=== PATIENT | male | born 1965 | race Caucasian/White ===

== ENCOUNTER 2017-01-29 11:20 | Emergency (ER) | payer MEDICARE ==
[~2017-01-29] VITALS: Ht 160 cm; Wt 95.3 kg
[~2017-01-29 11:20] MED LIST: ACET1TAB33 PO; BACL10TA PO; BUPR300T4 PO; FENT1PAT13 TD; GABA800T2 PO; HYDR-2762 PO; LISI10TA2 PO; MELO15TA23 PO; OLAN5TAB7 PO; OXCA300T PO; PROP40TA PO; RANI150C PO; SIMV20TA3 PO; SULF1TAB24 PO; TIOT18CA IH; TRAM50TA PO; UMEC1DIS IH; VENTOLIN HFA18 GM INH; ZOLP10TA4 PO
[2017-01-29 11:57] VITALS: BP 118/71
[2017-01-29] MEDS ORDERED: NAPROXEN 500 MG TABLET PO STA (12:14)
--- NOTE | 2017-01-29 12:33 | RAD ---
Right foot, 3 views, 01/29/2017: History: Foot pain, injury There is considerable hypertrophic degenerative change at the first MTP joint. There is mild scattered degenerative changes at several interphalangeal joints. No acute fracture or dislocation is identified. There is a small inferior calcaneal spur. IMPRESSION: 1. Scattered degenerative changes. 2. No acute bony abnormality is detected.
[2017-01-29 12:38] LABS: BASO # 0.1 x10^3/uL (0.0-0.2); BASO % 1 % (0-3); EOS % 4 % (0-3); HEMATOCRIT 33.6 % (39.0-53.0); HEMOGLOBIN 11.8 g/dL (13.0-17.5); LYMPH # 1.4 x10^3/uL (1.0-4.8); LYMPH % 23 % (24-48); MEAN CORPUSCULAR HEMOGLOBIN 33 pg (25-35); MEAN CORPUSCULAR HGB CONC 35 g/dL (31-37); MEAN CORPUSCULAR VOLUME 94 fL (79-100); MONO % 8 % (0-9); NEUT % 64 % (31-73); PLATELET COUNT 180 x10^3/uL (140-400); RED CELL DISTRIBUTION WIDTH 13.7 % (11.5-14.5); WHITE BLOOD COUNT 6.1 x10^3/uL (4.0-11.0)
[2017-01-29 12:45] LABS: BILIRUBIN,URINE NEGATIVE (NEG); GLUCOSE,URINE NEGATIVE (NEG); NITRITE,URINE NEGATIVE (NEG); PH,URINE 6.5; PROTEIN,URINE NEGATIVE (NEG-TRACE); UROBILINOGEN,URINE 0.2 mg/dL (0.2 mg/dL)
[2017-01-29 12:46] LABS: CALCIUM 9.2 mg/dL (8.5-10.1); CREATININE 0.9 mg/dL (0.7-1.3); GFR 88.3; POTASSIUM 4.4 mmol/L (3.5-5.1)
[2017-01-29 12:49] LABS: C-REACTIVE PROTEIN 2.5 mg/L (0-3.3); URIC ACID 2.9 mg/dL (3.5-7.2)
[2017-01-29 12:52] LABS: BACTERIA,URINE FEW /HPF (0-FEW); RBC,URINE 0 /HPF (0-2); SQUAMOUS EPITHELIAL CELL,UR FEW /LPF
[2017-01-29] MEDS ORDERED: DICL50TA4 PO (13:47)
[2017-01-29] MEDS ORDERED: DICL100G18 TP (13:47)
--- NOTE | 2017-01-29 13:48 | PHYS DOC ---
Past Medical History Past Medical History: Anxiety, CAD, COPD, Depression, Hypertension, Other Additional Past Medical Histor: "Back pt." Past Surgical History: Other Additional Past Surgical Histo: R)inruinal hernia, circumcision,"tailbone removed-s/pfell on ice." Alcohol Use: Occasionally Drug Use: None Adult General Chief Complaint Chief Complaint: FOOT INJURY PAIN HPI HPI Patient is a 51 year old male with history of hypertension, anxiety, CAD and depression who presents with right foot pain mostly on the great toe pain that began 2-1/2 months ago. Patient denies any known trauma though he states a couple days ago his son bumped into his right foot with his knee. Patient states the pain is worse on ambulation. Denies any history of gout. Review of Systems Review of Systems Constitutional: Denies fever or chills [] Eyes: Denies change in visual acuity, redness, or eye pain [] HENT: Denies nasal congestion or sore throat [] Respiratory: Denies cough or shortness of breath [] Cardiovascular: No additional information not addressed in HPI [] GI: Denies abdominal pain, nausea, vomiting, bloody stools or diarrhea [] : Denies dysuria or hematuria [] Musculoskeletal: Right great toe pain Integument: Denies rash or skin lesions [] Neurologic: Denies headache, focal weakness or sensory changes [] Endocrine: Denies polyuria or polydipsia [] Current Medications Current Medications Current Medications Medications (Trade) Dose Ordered Sig/Fredrick Start Time Stop Time Status Last Admin Dose Admin Naproxen (Naprosyn) 500 mg 1X STAT 01/29/17 12:14 01/29/17 12:16 DC 01/29/17 12:23 500 MG Allergies Allergies Allergies Coded Allergies Type Severity Reaction Last Updated Verified Penicillins Allergy Intermediate Swelling 03/25/16 Yes ciprofloxacin Allergy Intermediate "Hot" at injection site. "Bad reaction." Yes Physical Exam Physical Exam Constitutional: Well developed, well nourished, no acute distress, non-toxic appearance. [] HENT: Normocephalic, atraumatic, bilateral external ears normal, oropharynx moist, no oral exudates, nose normal. [] Eyes: PERRLA, EOMI, conjunctiva normal, no discharge. [] Neck: Normal range of motion, no tenderness, supple, no stridor. [] Cardiovascular:Heart rate regular rhythm, no murmur [] Lungs & Thorax: Bilateral breath sounds clear to auscultation [] Abdomen: Bowel sounds normal, soft, no tenderness, no masses, no pulsatile masses. [] Skin: Warm, dry, no erythema, no rash. [] Back: No tenderness, no CVA tenderness. [] Extremities: Right great toe MTP joint with small amount of soft tissue swelling no warmth or erythema. Tenderness along the right great toe MTP joint on exam. Full range of motion to the right foot and toes. No navicular bone pain or tenderness on exam to the right foot. No pain or tenderness of the base of the fifth metatarsal of the right foot. Neurologic: Alert and oriented X 3, normal motor function, normal sensory function, no focal deficits noted. [] Psychologic: Affect normal, judgement normal, mood normal. [] Current Patient Data Vital Signs Vital Signs Date Time Temp Pulse Resp B/P (MAP) Pulse Ox O2 Delivery O2 Flow Rate FiO2 01/29/17 11:57 97.7 96 18 96 Room Air 97.7 Lab Values Laboratory Tests Test 01/29/17 12:30 01/29/17 12:35 White Blood Count 6.1 x10^3/uL (4.0-11.0) Red Blood Count 3.60 x10^6/uL (4.30-5.70) L Hemoglobin 11.8 g/dL (13.0-17.5) L Hematocrit 33.6 % (39.0-53.0) L Mean Corpuscular Volume 94 fL (79-100) Mean Corpuscular Hemoglobin 33 pg (25-35) Mean Corpuscular Hemoglobin Concent 35 g/dL (31-37) Red Cell Distribution Width 13.7 % (11.5-14.5) Platelet Count 180 x10^3/uL (140-400) Neutrophils (%) (Auto) 64 % (31-73) Lymphocytes (%) (Auto) 23 % (24-48) L Monocytes (%) (Auto) 8 % (0-9) Eosinophils (%) (Auto) 4 % (0-3) H Basophils (%) (Auto) 1 % (0-3) Neutrophils # (Auto) 3.9 x10^3uL (1.8-7.7) Lymphocytes # (Auto) 1.4 x10^3/uL (1.0-4.8) Monocytes # (Auto) 0.5 x10^3/uL (0.0-1.1) Eosinophils # (Auto) 0.2 x10^3/uL (0.0-0.7) Basophils # (Auto) 0.1 x10^3/uL (0.0-0.2) Sodium Level 131 mmol/L (136-145) L Potassium Level 4.4 mmol/L (3.5-5.1) Chloride Level 97 mmol/L (98-107) L Carbon Dioxide Level 25 mmol/L (21-32) Anion Gap 9 (6-14) Blood Urea Nitrogen 16 mg/dL (8-26) Creatinine 0.9 mg/dL (0.7-1.3) Estimated GFR (Cockcroft-Gault) 88.3 Glucose Level 112 mg/dL (70-99) H Uric Acid 2.9 mg/dL (3.5-7.2) L Calcium Level 9.2 mg/dL (8.5-10.1) C-Reactive Protein, Quantitative 2.5 mg/L (0-3.3) Urine Collection Type Unknown Urine Color Yellow Urine Clarity Clear Urine pH 6.5 Urine Specific [place] 1.015 Urine Protein Negative mg/dL (NEG-TRACE) Urine Glucose (UA) Negative mg/dL (NEG) Urine Ketones (Stick) Negative mg/dL (NEG) Urine Blood Negative (NEG) Urine Nitrite Negative (NEG) Urine Bilirubin Negative (NEG) Urine Urobilinogen Dipstick 0.2 mg/dL (0.2 mg/dL) Urine Leukocyte Esterase Trace (NEG) Urine RBC 0 /HPF (0-2) Urine WBC 1-4 /HPF (0-4) Urine Squamous Epithelial Cells Few /LPF Urine Bacteria Few /HPF (0-FEW) Urine Mucus Slight /LPF Laboratory Tests 01/29/17 12:30 Laboratory Tests 01/29/17 12:30 EKG EKG [] Radiology/Procedures Radiology/Procedures []PROCEDURE: FOOT RIGHT 3V Right foot, 3 views, 01/29/2017: History: Foot pain, injury There is considerable hypertrophic degenerative change at the first MTP joint. There is mild scattered degenerative changes at several interphalangeal joints. No acute fracture or dislocation is identified. There is a small inferior calcaneal spur. IMPRESSION: 1. Scattered degenerative changes. 2. No acute bony abnormality is detected. DICTATED and SIGNED BY: ALPHONSO ESPINOZA MD DATE: 01/29/17 4350 CC: JUDITH LANE MD; ALVARO ORTEGA APRN; NON,STAFF ~ Course & Med Decision Making Course & Med Decision Making Pertinent Labs and Imaging studies reviewed. (See chart for details) Patient is in the ED with right foot pain specifically right great toe MTP joint. No history of gout. Uric acid was 2.9. Sodium 131, CBC without elevated WBC. Right foot x-rays interpreted by radiologist were noted for DJD no acute findings. Dragon Disclaimer Dragon Disclaimer This electronic medical record was generated, in whole or in part, using a voice recognition dictation system. Departure Departure Impression: Primary Impression: Degenerative joint disease of foot, right Disposition: HOME, SELF-CARE Condition: STABLE Referrals: JUDITH LANE MD (PCP) KRYSTAL CARDENAS MD follow up in one week Patient Instructions: Arthritis, Nonspecific Additional Instructions: You were seen for right foot pain. Your x-rays shows you have arthritis in the foot. Use the provided medications as ordered. Ice and elevate the extremity and follow-up with your doctor or the provided orthopedic doctor if symptoms continue in a week. Scripts Diclofenac Sodium (VOLTAREN) 100 Gm Gel..gram. 1 GM TP QID, #100 GM 2 Refills Prov: ALVARO ORTEGA APRN 01/29/17 Diclofenac Sodium (DICLOFENAC SODIUM) 50 Mg Tablet.dr 1 TAB PO BID, #60 TAB 1 Refill Prov: ALVARO ORTEGA APRN 01/29/17 Problem Qualifiers Primary Impression: Degenerative joint disease of foot, right Osteoarthritis type: unspecified Qualified Codes: M19.071 - Primary osteoarthritis, right ankle and foot ALVARO ORTEGA APRN Jan 29, 2017 13:47
== END 2017-01-29 13:49 | disposition home or self-care (01) ==
LOC: ER 11:20
DX: M19.071 Primary osteoarthritis, right ankle and foot (principal); F41.9 Anxiety disorder, unspecified; I25.10 Atherosclerotic heart disease of native coronary artery without angina pectoris; J44.9 Chronic obstructive pulmonary disease, unspecified; F32.9 Major depressive disorder, single episode, unspecified; I10 Essential (primary) hypertension; Z88.0 Allergy status to penicillin; Z88.1 Allergy status to other antibiotic agents
CPT/HCPCS: 36415; 73630; 80048; 81001; 84550; 85027; 85651; 86140; 99285-25

== ENCOUNTER → 2018-09-30 | Outpatient (CLI) | payer MEDICARE ==
[~2018-09-30] MED LIST changes: +DICL100G18 TP; +DICL50TA4 PO; -GABA800T2 PO; +GABA800T5 PO; -HYDR-2762 PO; +HYDR-2765 PO; -OXCA300T PO; +OXCA300T19 PO
--- NOTE | 2018-09-30 09:51 | KCIC ---
MRI of the lumbar spine without contrast 09/30/2018 CLINICAL HISTORY: Chronic low back pain worsening over last 2-3 months. TECHNIQUE: Unenhanced T1-weighted and T2-weighted sagittal and axial recovery sagittal images of the lumbar spine were obtained. FINDINGS: Comparison study is dated 02/28/2016. Mild S-shaped curvature of the thoracolumbar spine is seen. Degenerative signal changes are seen involving all of the disks of the lumbar spine. Degenerative signal changes are seen within the marrow surrounding these discs. The conus medullaris is normal morphology, position, and signal characteristics. The L1-2 disc space is within normal limits. At the L2-3 disc space there is a minimal generalized disc bulge. Superimposed on this disc bulge is a right paracentral focal disc protrusion. This measures 2 mm in AP diameter. Degenerative changes are seen involving the facet joints bilaterally. These findings do not result in significant central spinal canal or neural foraminal stenosis. At the L3-4 disc space there is a mild to moderate generalized disc bulge. This is eccentric to the left. Degenerative changes are seen involving the facet joints bilaterally. There is mild ligamentum flavum hypertrophy bilaterally. There is prominence of the posterior epidural fat. These findings when combined result in mild central spinal canal stenosis. No neural foraminal stenosis is seen. At the L4-5 disc space there is a mild to moderate generalized disc bulge. This is eccentric to the right. Superimposed on the disc bulge is a right lateral focal disc protrusion. This measures 4 mm in AP diameter. Degenerative changes are seen involving the facet joints bilaterally. There is mild ligamentum flavum hypertrophy bilaterally. These findings when combined do not result in significant central spinal canal or neural foraminal stenosis. At the L5-S1 disc space there is a mild to moderate generalized disc bulge. This is eccentric to the left. Degenerative changes are seen involving the facet joints bilaterally. These findings when combined do not result in significant central spinal canal stenosis. Moderate left neural foraminal stenosis is seen. The right neural foramen is patent. The degenerative changes at L3-4 have progressed slightly since the previous examination. The right paracentral disc herniation at T12-L1 seen on the previous study has resolved. IMPRESSION: The changes of degenerative disc disease are seen throughout the lumbar spine. These findings results in mild central spinal canal stenosis at L3-4. Moderate left neural foraminal stenosis is seen at L5-S1. Electronically signed by: Gabe Martínez MD (09/30/2018 9:48 AM) [id number]
== END | disposition home or self-care (01) ==
LOC: KCIC MRI 07:38
PROVIDERS: ATTEND Family Medicine
DX: M51.36 Other intervertebral disc degeneration, lumbar region (principal); M48.061 Spinal stenosis, lumbar region without neurogenic claudication; M48.07 Spinal stenosis, lumbosacral region; M51.26 Other intervertebral disc displacement, lumbar region
CPT/HCPCS: 72148